=== PATIENT | male | born 1945 | race Caucasian/White ===

== ENCOUNTER 2021-12-11 02:19 | Emergency (ER) | payer OTHER ==
[2021-12-11] MEDS ORDERED: Nitroglycerin 2% Ointment 1 INCH/1 GM Packet ONE (02:44)
[2021-12-11 02:50] LABS: #Basophils 0.1 thou/uL (0.0-0.2); #Eosinphils 0.7 thou/uL (0.0-0.7); #Lymphocytes 2.6 thou/uL (1.20-3.40); #Monocytes 0.5 thou/uL (0.11-0.59); #Neutrophils 8.3 thou/uL (1.40-6.50); %Basophils 0.5 % (0.0-1.0); %Eosinophils 5.5 % (0.0-10.0); %Lymphocytes 21.1 % (21.0-51.0); %Monocytes 4.3 % (0.0-10.0); %Neutrophils 68.6 % (42.0-75.0); Hemoglobin 13.7 g/dL (14.0-18.0); Mean Corpuscular HGB CONC 33.6 g/dL (32.0-36.0); Mean Corpuscular Hemoglobin 30.6 pg (27.0-31.0); Mean Corpuscular Volume 90.9 fL (78.0-98.0); Mean Platelet Volume 9.1 fL (7.4-10.4); Platelet Count 231 thou/uL (130-400); RBC Distribution Width 12.8 % (11.5-14.5); Red Blood Cell (RBC) Count 4.49 mill/uL (4.70-6.10); White Blood Cell (WBC) Count 12.2 thou/uL (4.8-10.8)
[2021-12-11 03:07] LABS: ALT (SGPT) 13 U/L (8-55); AST (SGOT) 9 U/L (5-34); Albumin 4.1 g/dL (3.4-4.8); Alkaline Phosphatase 143 U/L (40-110); Anion Gap 18 mmol/L (10-20); BUN (Urea Nitrogen) 18 mg/dL (8.4-25.7); Bilirubin, Total 0.3 mg/dL (0.2-1.2); Calc. Creatinine Clearance 0 mL/min (70-130); Carbon Dioxide 23 mmol/L (23-31); Chloride 101 mmol/L (98-107); Estimated GFR 79; Globulin 3.3 g/dL (2.4-3.5); Glucose 221 mg/dL (83-110); Lipase 404 U/L (8-78); Potassium 4.9 mmol/L (3.5-5.1); Protein, Total 7.4 g/dL (5.8-8.1); Sodium 137 mmol/L (136-145)
[2021-12-11 03:26] LABS: SARS-CoV-2 NAA Rapid Test Not Detected (NotDetected)
[2021-12-11] MEDS ORDERED: Lidocaine 1% (PF) 30 ML VIAL ONE (03:49)
[2021-12-11 06:03] LABS: Troponin I Less than 0.010 ng/mL (< 0.028)
[2021-12-11] MEDS ORDERED: Aspirin 81 mg Enteric Coated Tablet PO SCH (10:30)
[2021-12-11] MEDS ORDERED: Terazosin HCl 5 MG CAP PO SCH (10:30)
[2021-12-11] MEDS ORDERED: Isosorbide Mononitrate 20 MG TAB PO SCH (10:30)
[2021-12-11] MEDS ORDERED: NPH, Human Insulin Isophane 300 UNIT/3 ML VIAL SC SCH (10:30)
[2021-12-11] MEDS ORDERED: Metoprolol Tartrate 50 MG TAB ONE (10:39)
[2021-12-11] MEDS ORDERED: Aspirin Chewable 81 MG TAB ONE (10:39)
[2021-12-11] MEDS ORDERED: Lisinopril 20 MG TAB ONE (10:39)
[2021-12-11] MEDS ORDERED: metFORMIN 500 MG TAB ONE (10:39)
[2021-12-11] MEDS ORDERED: Phenytoin Extended Release 100 MG CAP PO SCH (10:45)
== END 2021-12-11 11:16 | disposition short-term general hospital (02) ==
LOC: NAV ERS 02:19
DX: K85.90 Acute pancreatitis without necrosis or infection, unspecified (principal); D72.829 Elevated white blood cell count, unspecified; Z20.822 Contact with and (suspected) exposure to COVID-19; J44.9 Chronic obstructive pulmonary disease, unspecified; G40.909 Epilepsy, unspecified, not intractable, without status epilepticus; E11.9 Type 2 diabetes mellitus without complications; E78.5 Hyperlipidemia, unspecified; I10 Essential (primary) hypertension; F17.200 Nicotine dependence, unspecified, uncomplicated; Z79.4 Long term (current) use of insulin; Z79.899 Other long term (current) drug therapy
CPT/HCPCS: 36415; 36416; 71045; 80053; 83690; 84484; 85025; 93005; J1815; J2001; U0002